=== PATIENT | male | born 1970 | race Caucasian/White ===

== ENCOUNTER 2019-04-26 18:49 | Inpatient (IN) | payer MEDICARE ==
[~2019-04-26] VITALS: Ht 180.3 cm; Wt 96.5 kg
[2019-04-26] MEDS ORDERED: LITH8SOL6 PO (18:58)
[2019-04-26] MEDS ORDERED: BUPR100 PO (18:58)
[2019-04-26] MEDS ORDERED: HTN MED PO (18:58)
[2019-04-26] MEDS ORDERED: QUET300T2 PO (18:58)
[2019-04-26] MEDS ORDERED: LORazepam 2 MG/ML VIAL IVP ONE (19:45)
[2019-04-26] MEDS ORDERED: SODIUM CHLORIDE 0.9% 1,000 ML IV ONE (19:45)
[2019-04-26 19:48] LABS: BASOPHILS % (AUTO) 0.6 % (0.0-2.0); EOSINOPHILS % (AUTO) 1.7 % (1.0-6.0); HEMATOCRIT 48.6 % (41-53); HEMOGLOBIN 16.5 g/dL (13.5-17.5); LYMPHOCYTES # (AUTO) 1.6 K/uL (1.0-4.8); LYMPHOCYTES % (AUTO) 17.5 % (22.0-44.0); MEAN CORPUSCULAR HEMOGLOBIN 30.2 pg (26.0-34.0); MEAN CORPUSCULAR HGB CONC 33.9 G/dL (31.0-37.0); MEAN CORPUSCULAR VOLUME 89 fL (80-100); MONOCYTES # (AUTO) 1.1 K/uL (0.1-1.0); MONOCYTES % (AUTO) 11.9 % (2.0-9.0); NEUTROPHILS # (AUTO) 6.3 K/uL (1.8-7.7); NEUTROPHILS % (AUTO) 68.3 % (40.0-70.0); PLATELET COUNT (AUTO) 348 K/uL (150-450); RED BLOOD CELL COUNT(AUTO) 5.44 MIL/uL (4.50-5.90); RED CELL DISTRIBUTION WIDTH 13.5 % (11.5-14.5)
[2019-04-26 19:59] LABS: INR 1.1 (0.9-1.1); PROTHROMBIN TIME 11.2 SEC (9.4-11.6)
[2019-04-26 20:07] LABS: ALBUMIN 4.2 g/dL (3.4-5.0); BILIRUBIN,TOTAL 0.4 mg/dL (0.1-1.0); CALCIUM, TOTAL 10.3 mg/dL (8.8-10.5); CREATININE 1.58 mg/dL (0.60-1.30); TOTAL PROTEIN, SERUM 8.4 g/dL (6.4-8.2)
[2019-04-26 20:31] LABS: POTASSIUM 2.8 mmol/L (3.5-5.1)
[2019-04-26] MEDS ORDERED: POTASSIUM CHLORIDE 20 MEQ ER TABLET PO ONE (20:45)
[2019-04-26] MEDS: POTASSIUM CHL 10 MEQ/WATER 50 ML IV SCH ×2 (20:49→21:45)
[2019-04-26 20:57] LABS: APPEARANCE,URINE CLEAR (CLEAR); BILIRUBIN,URINE NEGATIVE (NEGATIVE); GLUCOSE, URINE (UA) NEGATIVE (NEGATIVE); KETONES,URINE NEGATIVE (NEGATIVE); LEUKOCYTE ESTERASE ,URINE NEGATIVE (NEGATIVE); NITRATE,URINE NEGATIVE (NEGATIVE); OCCULT BLOOD,URINE NEGATIVE (NEGATIVE); PH,URINE 7.5 (5.0-8.0); PROTEIN,URINE TRACE (NEGATIVE); UROBILINOGEN,URINE 0.2 mg/dL (<=1.0)
[2019-04-26 21:01] LABS: AMPHET/METH SCREEN,URINE NEGATIVE (NEGATIVE); BARBITURATE SCREEN, URINE NEGATIVE (NEGATIVE); BENZODIAZEPINES SCREEN,URINE NEGATIVE (NEGATIVE); CANNABINOID SCREEN,URINE NEGATIVE (NEGATIVE); COCAINE SCREEN,URINE NEGATIVE (NEGATIVE); METHADONE SCREEN, URINE NEGATIVE (NEGATIVE); OPIATE SCREEN,URINE NEGATIVE (NEGATIVE)
[2019-04-26 21:04] LABS: PHENCYCLIDINE SCREEN,URINE NEGATIVE (NEGATIVE)
[2019-04-26] MEDS ORDERED: LORazepam 2 MG TABLET PO PRN (21:30)
[2019-04-26] MEDS ORDERED: ZOLPIDEM TARTRATE 10 MG TABLET PO PRN (21:30)
[2019-04-26] MEDS ORDERED: HALOPERIDOL 5 MG TABLET PO PRN (21:30)
[2019-04-27 00:44] LABS: ANION GAP 16 mmol/L (8-16); CALCIUM, TOTAL 8.8 mg/dL (8.8-10.5); CARBON DIOXIDE 26 mmol/L (22-29); CHLORIDE 101 mmol/L (98-107); CREATININE 1.22 mg/dL (0.60-1.30); GLOMERULAR FILTR. RATE CALC > 60 mL/min (>60); GLUCOSE,RANDOM 103 mg/dL (70-110); POTASSIUM 3.8 mmol/L (3.5-5.1); SODIUM SERUM 143 mmol/L (136-145); UREA NITROGEN, BLOOD 9 mg/dL (7-18)
[2019-04-27 06:34] LABS: CHOL/HDL RATIO 3.3 (4.2-7.3); FREE T4 (FREE THYROXINE) 1.03 ng/dL (0.76-1.46); THYROID STIMULATING HORMONE 1.42 uIU/mL (0.36-3.74)
[2019-04-27] MEDS ORDERED: DiphenhydrAMINE HCL 50 MG/ML VIAL IM ONE (09:30)
[2019-04-27] MEDS ORDERED: HALOPERIDOL LACTATE 5 MG/ML VIAL IM ONE (09:30)
[2019-04-27] MEDS ORDERED: LORazepam 2 MG/ML VIAL IM ONE (09:30)
[2019-04-27] MEDS ORDERED: PNEUMOCOCCAL VACCINE POLYVALENT 0.5 ML VIAL [PPSV23] IM ONE (13:00)
[2019-04-27 13:09] VITALS: BP 132/84
[2019-04-27] MEDS: BuPROPion HCL XL 150 MG ER TABLET PO SCH (13:18)
[2019-04-27] MEDS ORDERED: PETROLATUM,WHITE 28 GM JELLY TP PRN (14:45)
[2019-04-27] MEDS ORDERED: IBUPROFEN 400 MG TABLET PO PRN (14:45)
[2019-04-27] MEDS ORDERED: MAGNESIUM HYDROXIDE SUSPENSION 30 ML UDCUP PO PRN (14:45)
[2019-04-27] MEDS ORDERED: DOCUSATE SODIUM 100 MG CAPSULE PO PRN (14:45)
[2019-04-27] MEDS ORDERED: MAG HYDROX/AL HYDROX/SIMETH ES 30 ML SUSPENSION UDCUP PO PRN (14:45)
[2019-04-27] MEDS ORDERED: ACETAMINOPHEN 325 MG TABLET PO PRN (14:45)
[2019-04-27] MEDS ORDERED: CloNIDine HCL 0.1 MG TABLET PO PRN (14:45)
[2019-04-27] MEDS ORDERED: LOPERAMIDE HCL 2 MG CAPSULE PO PRN (14:45)
[2019-04-27] MEDS ORDERED: GuaiFENesin/D-METHORPHAN [SUGAR-FREE] 200-20MG/10 ML SYRUP UDCUP PO PRN (14:45)
[2019-04-27] MEDS ORDERED: NICOTINE 14 MG/24 HOUR PATCH TD PRN (14:45)
[2019-04-27] MEDS ORDERED: ALBUTEROL SULFATE HFA 90 MCG/PUFF 8 GM INHALER IH PRN (14:45)
[2019-04-27] MEDS ORDERED: ONDANSETRON HCL 4 MG TABLET PO PRN (14:45)
[2019-04-27 16:02] VITALS: BP 140/95
[2019-04-27] MEDS ORDERED: FLUTICASONE PROPIONATE 50 MCG/SPRAY 16 GM NASAL SPRAY NASAL PRN (19:00)
[2019-04-27] MEDS: QUEtiapine FUMARATE 300 MG TABLET PO SCH (20:08)
[2019-04-28 05:50] VITALS: BP 128/83
[2019-04-28] MEDS: BuPROPion HCL XL 150 MG ER TABLET PO SCH (08:06)
[2019-04-28 08:15] VITALS: BP 112/66
[2019-04-28 16:10] VITALS: BP 138/85
[2019-04-28] MEDS: QUEtiapine FUMARATE 300 MG TABLET PO SCH (20:17)
[2019-04-29 06:17] VITALS: BP 126/81
[2019-04-29] MEDS: BuPROPion HCL XL 150 MG ER TABLET PO SCH (08:32)
[2019-04-29 08:35] VITALS: BP 129/75
[2019-04-29] MEDS ORDERED: BUPR-93 PO (10:56)
[2019-04-29] MEDS ORDERED: QUET300T2 PO (10:56)
== END 2019-04-29 13:25 | disposition home or self-care (01) | DRG 885 ==
LOC: EMS 18:51 → B2S 04-27 09:44
PROVIDERS: ADMIT Psychiatry & Neurology Psychiatry; ATTEND Psychiatry & Neurology Psychiatry
PROC: 3E0234Z Introduction of Serum, Toxoid and Vaccine into Muscle, Percutaneous Approach (ICD-10-PCS; principal; 2019-04-27)
DX: F33.2 Major depressive disorder, recurrent severe without psychotic features (principal); R45.851 Suicidal ideations; N17.9 Acute kidney failure, unspecified; F60.3 Borderline personality disorder; E87.6 Hypokalemia; F10.10 Alcohol abuse, uncomplicated; F41.9 Anxiety disorder, unspecified; I10 Essential (primary) hypertension; Z79.899 Other long term (current) drug therapy; Z91.14 Patient's other noncompliance with medication regimen; Z91.19 Patient's noncompliance with other medical treatment and regimen; Z23 Encounter for immunization
CPT/HCPCS: 84439; 84443; 90732; 93005; G0480; J2060; J3480; J7030

== ENCOUNTER 2019-05-01 10:46 | Inpatient (IN) | payer MEDICARE ==
[~2019-05-01] VITALS: Ht 180.3 cm; Wt 99.8 kg
[~2019-05-01 10:46] MED LIST: BUPR-93 PO; QUET300T2 PO
[2019-05-01] MEDS ORDERED: DiphenhydrAMINE HCL 50 MG/ML VIAL IM ONE (11:45)
[2019-05-01] MEDS ORDERED: LORazepam 2 MG/ML VIAL IM ONE (11:45)
[2019-05-01] MEDS ORDERED: HALOPERIDOL LACTATE 5 MG/ML VIAL IM ONE (11:45)
[2019-05-01] MEDS ORDERED: BuPROPion HCL XL 150 MG ER TABLET PO ONE (11:45)
[2019-05-01 16:57] LABS: BASOPHILS % (AUTO) 0.7 % (0.0-2.0); EOSINOPHILS % (AUTO) 2.3 % (1.0-6.0); HEMATOCRIT 46.1 % (41-53); HEMOGLOBIN 15.2 g/dL (13.5-17.5); LYMPHOCYTES # (AUTO) 2.5 K/uL (1.0-4.8); LYMPHOCYTES % (AUTO) 36.3 % (22.0-44.0); MEAN CORPUSCULAR HEMOGLOBIN 29.7 pg (26.0-34.0); MEAN CORPUSCULAR VOLUME 90 fL (80-100); MONOCYTES # (AUTO) 0.8 K/uL (0.1-1.0); MONOCYTES % (AUTO) 12.4 % (2.0-9.0); NEUTROPHILS # (AUTO) 3.3 K/uL (1.8-7.7); NEUTROPHILS % (AUTO) 48.3 % (40.0-70.0); PLATELET COUNT (AUTO) 283 K/uL (150-450); RED BLOOD CELL COUNT(AUTO) 5.12 MIL/uL (4.50-5.90)
[2019-05-01 17:12] LABS: ANION GAP 12 mmol/L (8-16); CALCIUM, TOTAL 8.5 mg/dL (8.8-10.5); CARBON DIOXIDE 25 mmol/L (22-29); CHLORIDE 107 mmol/L (98-107); CREATININE 1.16 mg/dL (0.60-1.30); GLOMERULAR FILTR. RATE CALC > 60 mL/min (>60); GLUCOSE,RANDOM 89 mg/dL (70-110); POTASSIUM 4.3 mmol/L (3.5-5.1); SODIUM SERUM 144 mmol/L (136-145); UREA NITROGEN, BLOOD 11 mg/dL (7-18)
[2019-05-01 17:17] LABS: ALANINE AMINOTRANSFERASE 28 U/L (12-78); ALBUMIN 3.6 g/dL (3.4-5.0); ALKALINE PHOSPHATASE 88 U/L (46-116); ASPARTATE AMINOTRANSFERASE 35 U/L (15-37); BILIRUBIN,TOTAL 0.2 mg/dL (0.1-1.0); LIPASE 42 U/L (73-393); TOTAL PROTEIN, SERUM 7.3 g/dL (6.4-8.2)
[2019-05-01] MEDS ORDERED: HALOPERIDOL 5 MG TABLET PO PRN (18:15)
[2019-05-01] MEDS: QUEtiapine FUMARATE 300 MG TABLET PO SCH (22:59)
[2019-05-02] VITALS (11 sets, daily range): BP systolic 119–146; BP diastolic 68–89
[2019-05-02] MEDS ORDERED: ALBUTEROL SULFATE HFA 90 MCG/PUFF 8 GM INHALER IH PRN (06:15)
[2019-05-02] MEDS ORDERED: MAG HYDROX/AL HYDROX/SIMETH ES 30 ML SUSPENSION UDCUP PO PRN (06:15)
[2019-05-02] MEDS ORDERED: LOPERAMIDE HCL 2 MG CAPSULE PO PRN (06:15)
[2019-05-02] MEDS ORDERED: MAGNESIUM HYDROXIDE SUSPENSION 30 ML UDCUP PO PRN (06:15)
[2019-05-02] MEDS ORDERED: GuaiFENesin/D-METHORPHAN [SUGAR-FREE] 200-20MG/10 ML SYRUP UDCUP PO PRN (06:15)
[2019-05-02] MEDS ORDERED: ONDANSETRON HCL 4 MG TABLET PO PRN (06:15)
[2019-05-02] MEDS ORDERED: PETROLATUM,WHITE 28 GM JELLY TP PRN (06:15)
[2019-05-02] MEDS ORDERED: DOCUSATE SODIUM 100 MG CAPSULE PO PRN (06:15)
[2019-05-02] MEDS ORDERED: NICOTINE 14 MG/24 HOUR PATCH TD PRN (06:15)
[2019-05-02] MEDS ORDERED: ACETAMINOPHEN 325 MG TABLET PO PRN (06:15)
[2019-05-02] MEDS ORDERED: CloNIDine HCL 0.1 MG TABLET PO PRN (06:15)
[2019-05-02] MEDS ORDERED: IBUPROFEN 400 MG TABLET PO PRN (06:15)
[2019-05-02] MEDS ORDERED: BuPROPion HCL XL 150 MG ER TABLET PO SCH (09:00)
[2019-05-02] MEDS: BuPROPion HCL XL 150 MG ER TABLET PO SCH (09:18)
[2019-05-02] MEDS: LORazepam 2 MG TABLET PO PRN (18:58)
[2019-05-02] MEDS: QUEtiapine FUMARATE 300 MG TABLET PO SCH (20:37)
[2019-05-03] VITALS (7 sets, daily range): BP systolic 108–139; BP diastolic 69–94
[2019-05-03 08:47] LABS: BASOPHILS % (AUTO) 0.6 % (0.0-2.0); EOSINOPHILS % (AUTO) 4.9 % (1.0-6.0); HEMATOCRIT 43.6 % (41-53); HEMOGLOBIN 14.8 g/dL (13.5-17.5); LYMPHOCYTES # (AUTO) 1.5 K/uL (1.0-4.8); LYMPHOCYTES % (AUTO) 20.2 % (22.0-44.0); MEAN CORPUSCULAR HEMOGLOBIN 30.3 pg (26.0-34.0); MEAN CORPUSCULAR HGB CONC 33.9 G/dL (31.0-37.0); MEAN CORPUSCULAR VOLUME 89 fL (80-100); MONOCYTES # (AUTO) 0.8 K/uL (0.1-1.0); MONOCYTES % (AUTO) 11.5 % (2.0-9.0); NEUTROPHILS # (AUTO) 4.5 K/uL (1.8-7.7); NEUTROPHILS % (AUTO) 62.8 % (40.0-70.0); PLATELET COUNT (AUTO) 281 K/uL (150-450); RED BLOOD CELL COUNT(AUTO) 4.88 MIL/uL (4.50-5.90); RED CELL DISTRIBUTION WIDTH 13.6 % (11.5-14.5)
[2019-05-03] MEDS: BuPROPion HCL XL 150 MG ER TABLET PO SCH (08:49)
[2019-05-03 09:29] LABS: HEMOGLOBIN A1C 5.4 % (4.5-6.2)
[2019-05-03 09:40] LABS: ALANINE AMINOTRANSFERASE 32 U/L (12-78); ALBUMIN 3.2 g/dL (3.4-5.0); ALKALINE PHOSPHATASE 97 U/L (46-116); ANION GAP 3 mmol/L (8-16); ASPARTATE AMINOTRANSFERASE 23 U/L (15-37); BILIRUBIN,TOTAL 0.4 mg/dL (0.1-1.0); CALCIUM, TOTAL 8.5 mg/dL (8.8-10.5); CARBON DIOXIDE 31 mmol/L (22-29); CHLORIDE 103 mmol/L (98-107); CHOL/HDL RATIO 4.6 (4.2-7.3); CHOLESTEROL 175 mg/dL (131-200); CREATININE 1.18 mg/dL (0.60-1.30); GLOMERULAR FILTR. RATE CALC > 60 mL/min (>60); GLUCOSE,RANDOM 93 mg/dL (70-110); HDL CHOLESTEROL 38 mg/dL (40-60); LDL CHOL (CALC.) 86 mg/dL (0-130); POTASSIUM 4.1 mmol/L (3.5-5.1); SODIUM SERUM 137 mmol/L (136-145); THYROID STIMULATING HORMONE 0.87 uIU/mL (0.36-3.74); TOTAL PROTEIN, SERUM 6.9 g/dL (6.4-8.2); TRIGLYCERIDES 254 mg/dL (15-150); UREA NITROGEN, BLOOD 13 mg/dL (7-18)
[2019-05-03] MEDS: LORazepam 2 MG TABLET PO PRN (11:10)
[2019-05-03] MEDS: QUEtiapine FUMARATE 300 MG TABLET PO SCH (20:28)
[2019-05-04 00:04] VITALS: BP 114/74
[2019-05-04 08:31] VITALS: BP 115/71
[2019-05-04] MEDS: BuPROPion HCL XL 150 MG ER TABLET PO SCH (09:59)
[2019-05-04] MEDS: LORazepam 2 MG TABLET PO PRN ×2 (14:03→19:22)
[2019-05-04] MEDS: FLUTICASONE PROPIONATE 50 MCG/SPRAY 16 GM NASAL SPRAY NASAL PRN (14:04)
[2019-05-04 16:03] VITALS: BP 121/77
[2019-05-04] MEDS: QUEtiapine FUMARATE 300 MG TABLET PO SCH (20:11)
[2019-05-04] MEDS: ZOLPIDEM TARTRATE 10 MG TABLET PO PRN (20:11)
[2019-05-05 07:02] VITALS: BP 121/76
[2019-05-05 08:11] VITALS: BP 130/90
[2019-05-05] MEDS: BuPROPion HCL XL 150 MG ER TABLET PO SCH (08:47)
[2019-05-05] MEDS: FLUTICASONE PROPIONATE 50 MCG/SPRAY 16 GM NASAL SPRAY NASAL PRN ×3 (12:19→19:28)
[2019-05-05 16:03] VITALS: BP 125/84
[2019-05-05] MEDS: LORazepam 2 MG TABLET PO PRN (16:45)
[2019-05-05] MEDS: ZOLPIDEM TARTRATE 10 MG TABLET PO PRN (20:43)
[2019-05-05] MEDS: QUEtiapine FUMARATE 300 MG TABLET PO SCH (20:43)
[2019-05-06 05:18] VITALS: BP 122/82
[2019-05-06 08:38] VITALS: BP 117/77
[2019-05-06] MEDS: BuPROPion HCL XL 150 MG ER TABLET PO SCH (08:46)
[2019-05-06] MEDS: LORazepam 2 MG TABLET PO PRN (10:10)
[2019-05-06 16:04] VITALS: BP 113/96
[2019-05-06] MEDS: FLUTICASONE PROPIONATE 50 MCG/SPRAY 16 GM NASAL SPRAY NASAL PRN (18:47)
[2019-05-06] MEDS: QUEtiapine FUMARATE 300 MG ER TABLET PO SCH (20:28)
[2019-05-07 00:02] VITALS: BP 125/76
[2019-05-07 08:05] VITALS: BP 120/72
[2019-05-07] MEDS: BuPROPion HCL XL 150 MG ER TABLET PO SCH (08:57)
[2019-05-07 16:12] VITALS: BP 140/86
[2019-05-07] MEDS: FLUTICASONE PROPIONATE 50 MCG/SPRAY 16 GM NASAL SPRAY NASAL PRN (16:27)
[2019-05-07] MEDS: LORazepam 2 MG TABLET PO PRN (16:45)
[2019-05-07] MEDS: QUEtiapine FUMARATE 300 MG ER TABLET PO SCH (20:28)
[2019-05-08 00:19] VITALS: BP 127/82
[2019-05-08] MEDS: BuPROPion HCL XL 150 MG ER TABLET PO SCH (07:57)
[2019-05-08] MEDS: FLUTICASONE PROPIONATE 50 MCG/SPRAY 16 GM NASAL SPRAY NASAL PRN (07:58)
[2019-05-08 08:07] VITALS: BP 127/84
[2019-05-08] MEDS: LORazepam 2 MG TABLET PO PRN ×2 (11:03→16:48)
[2019-05-08 16:04] VITALS: BP_SYST 112; BP_SYST 159; BP_DIAS 74; BP_DIAS 92
[2019-05-08] MEDS: QUEtiapine FUMARATE 300 MG ER TABLET PO SCH (20:01)
[2019-05-09 00:44] VITALS: BP 119/69
[2019-05-09 08:13] VITALS: BP 126/82
[2019-05-09] MEDS: BuPROPion HCL XL 150 MG ER TABLET PO SCH (08:30)
[2019-05-09] MEDS ORDERED: OMEGA-3/DHA/EPA/FISH OIL 1,000 MG CAPSULE PO SCH (09:00)
[2019-05-09] MEDS ORDERED: BUPR-93 PO (10:06)
== END 2019-05-09 12:01 | disposition home or self-care (01) | DRG 885 ==
LOC: EMS 10:49 → B2X 23:34
PROVIDERS: ADMIT Psychiatry & Neurology Psychiatry; ATTEND Psychiatry & Neurology Psychiatry
DX: F33.2 Major depressive disorder, recurrent severe without psychotic features (principal); R45.851 Suicidal ideations; I10 Essential (primary) hypertension; F20.9 Schizophrenia, unspecified; F10.129 Alcohol abuse with intoxication, unspecified; F60.3 Borderline personality disorder; J30.9 Allergic rhinitis, unspecified; R00.0 Tachycardia, unspecified; Z79.899 Other long term (current) drug therapy
CPT/HCPCS: 83036; 84443; 87081; 96372; G0480; J1200; J1630; J2060